=== PATIENT | female | born 2000 | race Two or more races ===

== ENCOUNTER 2024-10-06 03:29 | Emergency (ER) | payer MEDICAID, SELFPAY ==
[2024-10-06 03:30] VITALS: BMI 44.6
[2024-10-06 03:36] VITALS: BP 140/88; PULSE 86; RESP 19; TEMP 37.1; O2SAT 100
[2024-10-06] MEDS: predniSONE 20 MG TABLET 40 MG PO (05:04)
[2024-10-06] MEDS: DEXAMETHASONE SOD PHOS INJ 10 MG/ML VIAL PO (05:05)
--- NOTE | 2024-10-06 05:48 | PD.ASTHM ---
ED Asthma RME/HPI General Chief Complaint: Shortness of Breath/Dyspnea Stated Complaint: DIFFICULTY BREATHING HX ASTHMA Time Seen by Provider: 10/06/24 04:23 Arrival date/time: 10/06/24 03:29 24F with history of asthma presents to ED with 1 day of cough and SOB. Limitations: no limitations Related Data Previous Rx's ?Medication ?Instructions ?Recorded ibuprofen 600 mg tablet 600 mg PO QID PRN fever or pain 01/02/21 #30 tabs amoxicillin 875 mg-potassium 1 tab PO BID #20 tabs 04/14/21 clavulanate 125 mg tablet (Augmentin) ondansetron HCl 4 mg tablet 4 mg PO Q8H PRN nausea and 04/15/21 (Zofran) vomiting #20 tabs ibuprofen 800 mg tablet 800 mg PO TID PRN pain #30 tabs 09/21/23 prednisone 50 mg tablet 50 mg PO QDAY 4 days #4 tabs 10/06/24 Allergies Allergy/AdvReac Type Severity Reaction Status Date / Time No Known Allergies Allergy Verified 10/06/24 03:32 Review of Systems Review of Systems Systems Reviewed: All systems reviewed, normal except as documented Constitutional Constitutional: Reports system reviewed and no additional complaints, except as documented, Denies fever(s) and Denies headache(s) ENT Ears, Nose, Mouth, and Throat: Denies disequilibrium and Denies headache(s) Cardiovascular Cardiovascular: Reports system reviewed and no additional complaints, except as documented, Denies chest pain and Reports dyspnea Respiratory Respiratory: Reports system reviewed and no additional complaints, except as documented, Reports as per HPI, Reports cough and Reports dyspnea Gastrointestinal Gastrointestinal: Reports system reviewed and no additional complaints, except as documented, Denies abdominal pain, Denies nausea and Denies vomiting Neurologic Neurologic: Reports system reviewed and no additional complaints, except as documented, Denies confusion, Denies disequilibrium and Denies headache(s) Psychiatric Psychiatric: Denies confusion Past Medical History Social History SMOKING STATUS: Never smoker ED Exam General Limitations: Present no limitations General appearance: Present alert and in no apparent distress Head Head exam: Present atraumatic Eye Eye exam: Present normal appearance, PERRL and EOMI ENT ENT exam: Present normal exam, normal oropharynx and mucous membranes moist Neck Neck exam: Present normal inspection, full ROM and trachea midline Chest Chest inspection: Present normal inspection and symmetric chest wall rise Respiratory Respiratory exam: Present normal lung sounds bilaterally and prolonged expiratory phase (mild) Cardiovascular Cardiovascular exam: Present regular rate, normal rhythm and normal heart sounds Abdominal Exam Abdominal exam: Present soft and normal bowel sounds Extremities Exam Extremities exam: Present normal inspection and full ROM Back Exam Back exam: Present normal inspection and full ROM Neurological Exam Neurological exam: Present alert, oriented X3 and CN II-XII intact Psychiatric Psychiatric exam: Present normal affect and normal mood Skin Skin exam: Present warm, dry, intact and normal color Course Quality Measures none Orders Category Date Time Status Dexamethasone Inj [Decadron Inj] Med 10/06/24 04:23 Discontinued 10 mg PO X1 ONE predniSONE Med 10/06/24 04:23 Discontinued 40 mg PO X1 ONE Vital Signs Vital signs: Vital Signs Temperature 98.8 F 10/06/24 03:36 Pulse Rate 86 10/06/24 03:36 Respiratory Rate 19 10/06/24 03:36 Blood Pressure 140/88 H 10/06/24 03:36 Pulse Oximetry (%) 100 10/06/24 03:36 Oxygen Delivery Method Room Air 10/06/24 03:36 Asthma MDM Narrative MDM Narrative:: 24F with history of asthma presents to ED with 1 day of cough and SOB. Physical exam reveals clear lungs. Prolonged expiration. Patient is afebrile, calm, and alert. Steroids improved symptoms. Likely mild exacerbation. Patient data External records reviewed:: [facility] Clinical information provided by:: patient Social determinants that could affect healthcare access:: none Patient has the following chronic illnesses:: asthma How is presenting disease/condition affected by chronic disease/condition?: exacerbated by Evaluation data The following diagnostics were reviewed and interpreted by me:: other (specify) (none) Lab and/or radiology exams considered but not ordered:: not ordered Interpretation Summary: n/a Medications / Prescriptions Medications or Prescriptions considered but not ordered:: ordered Medication administrations:: Medication Administration History Discontinued Medications Dexamethasone Sodium Phosphate (Dexamethasone Sod Phos Inj 10 Mg/Ml Vial) 10 mg PO X1 ONE Stop: 10/06/24 04:24 Last Admin: 10/06/24 05:05 Dose: 10 mg Documented By: EE Prednisone (Prednisone 20 Mg Tablet) 40 mg PO X1 ONE Stop: 10/06/24 04:24 Last Admin: 10/06/24 05:04 Dose: 40 mg Documented By: JEANNETTE Consultations Consultation(s) initiated? (list below): No Diagnosis Differential diagnosis asthma: Acute exacerbation, Status asthmaticus, Acute asthmatic bronchitis, PE, Pneumonia, COPD exacerbation, Pulmonary edema systolic, Pulmonary edema dystolic, ARDS, Pneumothorax and Foreign body in trachea Most likely diagnosis given after review of the tests above:: mild asthma exacerbation Admission Indicated Admission indicated?: not indicated Admission Request Was there a request for admission?: No Disposition Plan Disposition Plan: Discharge Discharge Attestation Discharge Attestation: The patient and all family members were given an opportunity to ask questions and understood the discharge instructions. Discharge instructions specifically effects, indications for sooner follow up or return to the emergency department, and the expected course of current diagnosis. Patient condition: Stable Discharge Plan Plan Patient Disposition: HOME (Self Care) Disposition Comment: Stable Prescriptions/Referrals Prescriptions/Med Rec: New prednisone 50 mg tablet 50 mg PO QDAY 4 Days Qty: 4 0RF No Action amoxicillin-pot clavulanate [Augmentin] 875-125 mg tablet 1 tab PO BID Qty: 20 0RF ibuprofen 600 mg tablet 600 mg PO QID PRN (Reason: fever or pain) Qty: 30 0RF ondansetron HCl [Zofran] 4 mg tablet 4 mg PO Q8H PRN (Reason: nausea and vomiting) Qty: 20 0RF ibuprofen 800 mg tablet 800 mg PO TID PRN (Reason: pain) Qty: 30 0RF Referrals: Samuel Coronel MD [Primary Care Provider] - In 1 week Problem List Clinical Impression: Mild asthma exacerbation Patient/Caregiver Discharge Instructions Additional Instructions: Please follow-up with PCP within 24-48 hours and return immediately if symptoms worsen. Print Language: [place] Stand Alone Forms: Patient Portal Info Letter JUAN CARLOS/SERGIO Supervising Physician PATY Supervising Physician: Dr. Grace
== END 2024-10-06 06:13 | disposition home or self-care (01) ==
PROVIDERS: Emergency Provider Emergency Medicine; PCP Family Medicine
DX: J45.901 Unspecified asthma with (acute) exacerbation (principal)
CPT/HCPCS: 99282; J1100; J7512

== ENCOUNTER 2024-12-06 03:06 | Emergency (ER) | payer MEDICAID, SELFPAY ==
[2024-12-06 03:07] VITALS: BMI 39.7
--- NOTE | 2024-12-06 03:57 | XR_ITS ---
Examination: Abdomen sonogram, Limited Date and time of exam: December 06, 2024 0508 hours INDICATIONS: Right upper abdominal pain radiating to back with nausea beginning one month ago Technique: Real-time bashir scale transabdominal sonographic images of the upper abdomen obtained. Findings: Negative for gallstones Common bile duct 0.3 cm Pancreatic head 2.9 cm Liver 17.1 cm lobular contour fatty infiltration Normal hepatopedal portal venous flow Patent IVC IMPRESSION: Negative for cholelithiasis Mild hepatomegaly fatty infiltration suspect primary hepatocellular disease
[2024-12-06 04:01] VITALS: BP 143/105; PULSE 89; RESP 18; TEMP 36.8; O2SAT 98
--- NOTE | 2024-12-06 04:01 | PD.EDABDPN ---
ED Abdominal Pain RME/HPI General Chief Complaint: Abdominal Pain Stated complaint: R UPPER ABD PAIN WITH HX OD GALLSTONES Time seen by provider: 12/06/24 03:52 Arrival date/time: 12/06/24 03:06 RME / HPI RME / HPI narrative: This section includes all my notes and documentations, including HPI, PE, and ED course. Andry Grace MD HPI: 24yo female with a history of gallstones (several years ago) presents to the ED for a chief complaint of right sided upper abdominal pain. No radiation or migration. Feels similar to her gallstones. She states her pain worsened tonight around 2200, about 5 hours ago. Patient reports associated nausea. Patient denies any vomiting, fever, chills or any other associated symptoms. No PSH. Denies being . No other complaints reported. ROS: All negative except as documented in HPI. Physical Exam: General: Alert and oriented. No acute distress when remaining still. Eyes: Conjunctivae and lids clear. ENT: No nasal congestion. Neck: Supple. Heart: RRR. Lungs: No respiratory distress. Good air movement. No rhonchi, wheezing, rales. Abdomen: Soft with epigastric and RUQ tenderness. Normal bowel sounds. No distension. No rebound or guarding. Back: No CVA tenderness. Skin: Warm and dry. Neuro: Alert and oriented X 3. I reviewed all diagnostic test results. My review of the US gallbladder report is no acute findings. Blood tests and urine tests unremarkable. At this point, diagnoses include gastritis. Treatment here included Tylenol with Codeine and Zofran. Significant improvement noted. Prescribed famotidine and omeprazole and recommended more outpatient workup. Based on my best medical judgment, made decision no further evaluation or treatment indicated at this time. Patient understands and agrees to the discharge instructions customized and printed, see below. Discharge instructions from Dr. Grace: ?After evaluation, your symptoms are due to stomach ulcer (see attached handout).? ?To help heal the ulcer, take Omeprazole 40 mg every morning and Famotidine 40 mg at bedtime for a week then as needed. ?Zofran for nausea/vomiting.? Clear liquid diet for 24 hours.? Then slowly advance diet as tolerated. ?Avoid food and beverages that can trigger and worsen ulcers.? See attached handout. ?See a private doctor on 12/09/2024. Ask to review all test results and official radiology reports, to make sure you receive all necessary follow-ups and monitoring. To make sure there is no serious intra-abdominal condition, ask for help with more investigation not available here in the ER.? Such as EGD or scoping the stomach, colonoscopy or scoping the colon, and referral to see wholesaler. ?Seek immediate medical care with worsening or with any concerns. Andry Grace MD Related Data Previous Rx's ?Medication ?Instructions ?Recorded ibuprofen 600 mg tablet 600 mg PO QID PRN fever or pain 01/02/21 #30 tabs amoxicillin 875 mg-potassium 1 tab PO BID #20 tabs 04/14/21 clavulanate 125 mg tablet (Augmentin) ondansetron HCl 4 mg tablet 4 mg PO Q8H PRN nausea and 04/15/21 (Zofran) vomiting #20 tabs ibuprofen 800 mg tablet 800 mg PO TID PRN pain #30 tabs 09/21/23 famotidine 40 mg tablet 40 mg PO .bedtime #30 tabs 12/06/24 omeprazole 40 mg capsule,delayed 40 mg PO QDAY #30 caps 12/06/24 release ondansetron 4 mg disintegrating 4 mg PO TID PRN nausea and 12/06/24 tablet vomiting 30 days #10 tabs Allergies Allergy/AdvReac Type Severity Reaction Status Date / Time No Known Allergies Allergy Verified 12/06/24 03:11 Review of Systems Review of Systems Systems Reviewed: All systems reviewed, normal except as documented Past Medical History Social History SMOKING STATUS: Never smoker ED Exam Narrative Physical exam: As noted in HPI. Course Quality Measures none Orders Category Date Time Status US gall bladder Stat Exams 12/06/24 03:57 Completed Amylase Stat Lab 12/06/24 04:20 Completed Bilirubin,Direct Stat Lab 12/06/24 04:20 Completed CBC Stat Lab 12/06/24 04:20 Completed CMP [Comprehensive Metabolic Panel] Stat Lab 12/06/24 04:20 Completed HCG Qualitative,Urine Stat Lab 12/06/24 05:06 Completed HCG,Qualitative Serum Stat Lab 12/06/24 04:20 Completed Lipase Stat Lab 12/06/24 04:20 Completed Magnesium Stat Lab 12/06/24 04:20 Completed UA, C/S IF [Urinalysis, C/S if Indicated] Stat Lab 12/06/24 05:06 Completed ACETAMINOPHEN w/COD 300-30 [Tylenol w/Cod #3] Med 12/06/24 03:58 Discontinued 2 tab PO X1 ONE Ondansetron Odt [Zofran Odt] Med 12/06/24 03:58 Discontinued 4 mg PO X1 ONE Vital Signs Vital signs: Vital Signs Temperature 98.3 F 12/06/24 04:01 Pulse Rate 89 12/06/24 04:01 Respiratory Rate 18 12/06/24 04:01 Blood Pressure 143/105 H 12/06/24 04:01 Pulse Oximetry (%) 98 12/06/24 04:01 Oxygen Delivery Method Room Air 12/06/24 04:01 Abdominal Pain MDM MDM Narrative MDM Narrative:: 24yo female with a history of gallstones presents to the ED for a chief complaint of right flank pain. No radiation or migration. Patient states she's had intermittent pain for years , reporting it feels similar to her gallstones. She states her pain worsened tonight around 2200, so she came in for evaluation. Patient reports associated nausea. Patient denies any vomiting, fever, chills or any other associated symptoms. No PSH. Denies being . No other complaints reported. Patient data External records reviewed:: [facility] previous records (Per chart review, patient was seen here on 10/06/24 for mild asthma exacerbation.) Clinical information provided by:: patient Social determinants that could affect healthcare access:: none Patient has the following chronic illnesses:: none How is presenting disease/condition affected by chronic disease/condition?: no chronic disease Evaluation data The following diagnostics were reviewed and interpreted by me:: lab results and radiology exam(s) Lab and/or radiology exams considered but not ordered:: none Interpretation Summary: I reviewed all diagnostic test results. My review of the US gallbladder report is no acute findings. Blood tests and urine tests unremarkable. Medications / Prescriptions Medications or Prescriptions considered but not ordered:: none Medication administrations:: Medication Administration History Discontinued Medications Acetaminophen/Codeine Phosphate (Acetaminophen W/Cod 300-30 Tablet) 2 tab PO X1 ONE Stop: 12/06/24 03:59 Last Admin: 12/06/24 05:46 Dose: Not Given Documented By: NANCY Non-Admin Reason: Discontinued Ondansetron HCl (Ondansetron Odt 4 Mg Tabrap) 4 mg PO X1 ONE; Protocol Stop: 12/06/24 03:59 Last Admin: 12/06/24 05:46 Dose: Not Given Documented By: NANCY Non-Admin Reason: Discontinued Tylenol with Codeine, Zofran Consultations Consultation(s) initiated? (list below): No Diagnosis Differential diagnosis abdominal pain: acute appendicitis, calculus of kidney, constipation, diverticulitis, endometriosis, gastroenteritis, pancreatitis, small bowel obstruction and other (Biliary colic, PUD, gastritis, GERD) Most likely diagnosis given after review of the tests above:: Gastritis Admission Indicated Admission indicated?: not indicated Explain why admission is indicated or not indicated:: With significant improvement, there was no indication for admission. Admission Request Was there a request for admission?: No Disposition Plan Disposition Plan: Discharge Discharge Attestation Discharge Attestation: The patient and all family members were given an opportunity to ask questions and understood the discharge instructions. Discharge instructions specifically effects, indications for sooner follow up or return to the emergency department, and the expected course of current diagnosis. Patient condition: Stable Discharge Plan Plan Patient Disposition: HOME (Self Care) Prescriptions/Referrals Prescriptions/Med Rec: New famotidine 40 mg tablet 40 mg PO .bedtime Qty: 30 0RF omeprazole 40 mg capsule,delayed release(DR/EC) 40 mg PO QDAY Qty: 30 0RF ondansetron 4 mg tablet,disintegrating 4 mg PO TID PRN (Reason: nausea and vomiting) 30 Days Qty: 10 0RF No Action amoxicillin-pot clavulanate [Augmentin] 875-125 mg tablet 1 tab PO BID Qty: 20 0RF ibuprofen 600 mg tablet 600 mg PO QID PRN (Reason: fever or pain) Qty: 30 0RF ondansetron HCl [Zofran] 4 mg tablet 4 mg PO Q8H PRN (Reason: nausea and vomiting) Qty: 20 0RF ibuprofen 800 mg tablet 800 mg PO TID PRN (Reason: pain) Qty: 30 0RF Referrals: Samuel Coronel MD [Primary Care Provider] - In 1 week Problem List Clinical Impression: Stomach ulcer Patient/Caregiver Discharge Instructions Discharge Activity: activity as tolerated Education Materials: ED PEPTIC ULCER vs GASTRITIS Additional Instructions: Discharge instructions from Dr. Grace: ?After evaluation, your symptoms are due to stomach ulcer (see attached handout).? ?To help heal the ulcer, take Omeprazole 40 mg every morning and Famotidine 40 mg at bedtime for a week then as needed. ?Zofran for nausea/vomiting.? Clear liquid diet for 24 hours.? Then slowly advance diet as tolerated. ?Avoid food and beverages that can trigger and worsen ulcers.? See attached handout. ?See a private doctor on 12/09/2024. Ask to review all test results and official radiology reports, to make sure you receive all necessary follow-ups and monitoring. To make sure there is no serious intra-abdominal condition, ask for help with more investigation not available here in the ER.? Such as EGD or scoping the stomach, colonoscopy or scoping the colon, and referral to see wholesaler. ?Seek immediate medical care with worsening or with any concerns. Print Language: [place] Stand Alone Forms: Carol Award Info., Patient Portal Info Letter
[2024-12-06 04:34] LABS: Basophils % (Auto) 0 % (0-2.5); Eosinophils # (Auto) 0.1 Thou/mm3 (0.0-0.5); Eosinophils % (Auto) 1 % (0-10); Hematocrit 40.3 % (36.0-46.0); Hemoglobin 13.3 g/dL (12.0-16.0); Immature Granulocytes % (Auto) 0 % (0-0); Immature Granulocytes Auto 0.03 Thou/mm3 (0.00-0.00); Lymphocytes # (Auto) 3.6 Thou/mm3 (1.0-4.8); Lymphocytes % (Auto) 35 % (10-50); Mean Corpuscular Hemoglobin 25.4 pg (25.0-35.0); Mean Corpuscular Volume 77 fL (80-100); Monocytes # (Auto) 0.6 Thou/mm3 (0.0-0.8); Monocytes % (Auto) 6 % (0-12); Neutrophils % (Auto) 58 % (37-80); Nucleated Red Blood Cell % 0 /100 WBC (0); Platelet Count 279 Thou/mm3 (140-440); RDW Standard Deviation 38.7 fL (36.4-46.3); Red Blood Count 5.23 Miln/mm3 (4.00-5.20); White Blood Count 10.2 Thou/mm3 (3.6-11.0)
[2024-12-06 04:55] LABS: Alanine Aminotransferase 35 U/L (10-49); Albumin, Serum 4.5 gm/dL (3.5-5.0); Albumin/Globulin Ratio 1.7 (1.2-2.2); Alkaline Phosphatase 101 U/L (46-116); Amylase 76 U/L (30-118); Anion Gap 10 (7-16); Aspartate Amino Transferase 22 U/L (0-34); BUN/Creatinine Ratio 14 Ratio (12-20); Bilirubin,Direct < 0.1 mg/dL (0.0-0.3); Bilirubin,Total 0.2 mg/dL (0.3-1.2); Blood Urea Nitrogen 10 mg/dL (9-23); Calcium 8.9 mg/dL (8.3-10.6); Calcium (Corrected) 8.9 mg/dL (8.5-10.1); Carbon Dioxide 27.8 mMol/L (20.0-31.0); Chloride 106 mMol/L (98-107); Creatinine (Component) 0.7 mg/dL (0.6-1.3); Estimated Creatinine Clearance 154.4 mL/min (>60); Globulin 2.7 gm/dL (2.3-3.5); Glucose 97 mg/dL (74-106); Lipase 40 U/L (12-53); Magnesium 1.8 mg/dL (1.6-2.6); Osmolality,Calculated 285 (275-295); Potassium 3.9 mMol/L (3.4-5.1); Sodium 144 mMol/L (136-145); Total Protein 7.2 gm/dL (5.7-8.2); eGFR > 60 See Note
[2024-12-06 05:12] LABS: HCG,Qualitative Serum Negative
[2024-12-06 05:36] LABS: Collection Type, Urine Clean Catch
[2024-12-06 05:42] LABS: Bilirubin,Urine Negative (Negative); Blood,Urine Negative (Negative); Clarity,Urine Clear (Clear/Hazy); Color,Urine Lt-Yellow (Lt Yel-Yel); Culture Indicated,Urine Not Indicated; Glucose, Urine Negative (Negative); Ketones,Urine Negative (Negative); Leukocyte Esterase,Urine Negative (Negative); Nitrite,Urine Negative (Negative); Protein,Urine Negative (Neg - Trace); RBC,Urine 1 /hpf (0-3); Specific Gravity,Urine 1.022 (1.001-1.035); Squamous Epithelial Cell,Urine 1 /hpf (0-5); Urobilinogen,Urine Negative mg/dL (0.0-1.0); WBC,Urine 4 /hpf (0-5)
[2024-12-06 05:52] LABS: HCG Qualitative,Urine Negative
== END 2024-12-06 05:48 | disposition home or self-care (01) ==
PROVIDERS: Emergency Provider Emergency Medicine; PCP Family Medicine
DX: K25.9 Gastric ulcer, unspecified as acute or chronic, without hemorrhage or perforation (principal); R10.11 Right upper quadrant pain
CPT/HCPCS: 36415; 76705; 80053; 81001; 81025; 82150; 82248; 83690; 83735; 84703; 85025; 99284

== ENCOUNTER 2025-04-19 06:25 | Emergency (ER) | payer MEDICAID, SELFPAY ==
[2025-04-19 06:26] VITALS: BMI 44.6
[2025-04-19 06:29] VITALS: BP 133/85; PULSE 83; RESP 18; TEMP 36.6; O2SAT 100
[2025-04-19 07:49] LABS: Collection Type, Urine Voided; RBC,Urine 0 /hpf (0-3)
[2025-04-19 08:02] LABS: Amorphous Crystals,Urine Present (Absent); Bilirubin,Urine Negative (Negative); Blood,Urine Negative (Negative); Budding Yeast,Urine Present; Calcium Oxalate Crystals,Urine 2+; Color,Urine Yellow (Lt Yel-Yel); Culture Indicated,Urine Not Indicated; Glucose, Urine Negative (Negative); Ketones,Urine Negative (Negative); Leukocyte Esterase,Urine Positive (Negative); Nitrite,Urine Negative (Negative); PH,Urine 6.0 (5.0-7.0); Protein,Urine Trace (Neg - Trace); Specific Gravity,Urine 1.039 (1.001-1.035); Squamous Epithelial Cell,Urine 4 /hpf (0-5); Urobilinogen,Urine 2.0 mg/dL (0.0-1.0); WBC,Urine 2 /hpf (0-5)
[2025-04-19 08:05] LABS: HCG Qualitative,Urine Negative
[2025-04-19 08:06] LABS: Clarity,Urine Hazy (Clear/Hazy)
--- NOTE | 2025-04-19 08:31 | EDNOTE_ITS ---
<Statement entered by Sally Romano MD - 05/04/25 14:16> As co-signing physician, I was present and available for consult prn. I concur with the plan and care as documented by the midlevel provider. ED Back Injury Pain RME/HPI General Chief Complaint: Back Pain/Injury Stated Complaint: BACK PAIN X3 DAYS Time Seen by Provider: 04/19/25 06:50 Arrival date/time: 04/19/25 06:25 This is a 24-year-old female that comes into the emergency room with lower back pain. Patient states pain starts in the right buttock area and radiates down her leg. Patient states she has tingling to her leg. Patient denies any loss of bowel or bladder control. Patient states that she fell forward a couple days ago she thinks she tripped over something. Patient did not fall on her back however. Patient states she fell forward. Patient denies any urinary symptoms. Patient denies any past medical history. Related Data Previous Rx's ?Medication ?Instructions ?Recorded ibuprofen 600 mg tablet 600 mg PO QID PRN fever or p ain 01/02/21 #30 tabs amoxicillin 875 mg-potassium 1 tab PO BID #20 tabs clavulanate 125 mg tablet (Augmentin) ondansetron HCl 4 mg tablet 4 mg PO Q8H PRN nausea and 04/15/21 (Zofran) vomiting #20 tabs ibuprofen 800 mg tablet 800 mg PO TID PRN pain #30 t abs 09/21/23 famotidine 40 mg tablet 40 mg PO .bedtime #30 tabs 0 12/06/24 omeprazole 40 mg capsule,delayed 40 mg PO QDAY #30 cap s 12/06/24 release cyclobenzaprine 10 mg tablet 10 mg PO HS PRN muscle sp asm #14 04/19/25 tabs ibuprofen 800 mg tablet 800 mg PO Q6H PRN pain #14 t abs 04/19/25 Allergies Allergy/AdvReac Type Severity Reaction Status Date / Time No Known Allergies Allergy Verified 04/19/25 06:26 Review of Systems Review of Systems Systems Reviewed: All systems reviewed, normal except as documented Past Medical History Social History SMOKING STATUS: Never smoker ED Exam Narrative Physical exam: VITAL SIGNS: Reviewed. GENERAL APPEARANCE: Alert and interactive, follows commands, no acute distress HEAD AND FACE: Non-traumatic. ENT: PERRL, conjuctiva pink and clear, eyelid no trauma, Mucous membrane moist. NECK: Supple, nontender, no nuchal rigidity. CHEST: No tenderness, no crepitus, no paradoxical movement, no retractions. LUNGS: breathing even and unlabored HEART: Regular rate, cap refill less than 2 seconds ABDOMEN: Soft, nondistended, no guarding, nontender, no rebound, no masses, NEUROLOGICAL: Gross motor function intact sensory function intact, Appropriate for age. MUSCULOSKELETAL: low back nontender, full range of motion. no midline tenderness, no meningismus, no step offs, straight leg test done. Pain was exacerbated when patient lifted leg approximately 35 degrees. EXTREMITIES: No redness no swelling no skin breakdown on bilateral foot and leg. Distal neurovascular status intact bilateral foot SKIN: Color pink, dry, no rash, no lacerations, no abrasions, no contusions. Course Quality Measures none Orders Category Date Time Status HCG Qualitative,Urine Stat Lab 04/19/25 07:29 Completed Urinalysis, C/S if Indicated Stat Lab 04/19/25 07:29 Completed Acetaminophen Tab [Tylenol ES Tab] Med 04/19/25 08:24 Discontinued 1,000 mg PO X1 ONE CYCLObenzaPRINE [Flexeril] Med 04/19/25 08:24 Discontinued 10 mg PO X1 ONE Ketorolac Inj [Toradol Inj] Med 04/19/25 08:24 Discontinued 60 mg IM X1 ONE Metoclopramide [Reglan] Med 04/19/25 08:24 Discontinued 10 mg PO X1 ONE Vital Signs Vital signs: Vital Signs Temperature 97.9 F 04/19/25 06:29 Pulse Rate 83 04/19/25 06:29 Respiratory Rate 18 04/19/25 06:29 Blood Pressure 133/85 H 04/19/25 06:29 Pulse Oximetry (%) 100 04/19/25 06:29 Oxygen Delivery Method Room Air 04/19/25 06:29 Back Pain / Injury MDM Narrative MDM Narrative:: I spoke to patient at length. Urine looks unremarkable. Patient does not seem to have any other injuries. Patient was having some upper back pain but is more generalized. Patient does have pain to palpation to her right buttock area that radiates down her leg. Will treat for sciatica type pain patient told to follow-up with primary provider in 1 to 2 days. Back to emergency room symptoms change or worsen. Dragon dictation: Although this document has been carefully reviewed, there may still be some phonetic and other typographical errors. These errors are purely grammatical due to imperfections in the software program and should not be construed in any way to compromise the substance of the patient's medical care during this visit Patient data External records reviewed:: [facility] previous records Clinical information provided by:: patient Social determinants that could affect healthcare access:: none Patient has the following chronic illnesses:: None How is presenting disease/condition affected by chronic disease/condition?: no chronic disease Evaluation data The following diagnostics were reviewed and interpreted by me:: lab results Lab and/or radiology exams considered but not ordered:: None Interpretation Summary: See note Medications / Prescriptions Medications or Prescriptions considered but not ordered:: None Medication administrations:: Medication Administration History Discontinued Medications Acetaminophen (Acetaminophen 500 Mg Tablet) 1,000 mg PO X1 ONE Stop: 04/19/25 08:25 Last Admin: 04/19/25 08:43 Dose: 1,000 mg Documented By: [facility] Cyclobenzaprine HCl (Cyclobenzaprine 5 Mg Tablet) 10 mg PO X1 ONE Stop: 04/19/25 08:25 Last Admin: 04/19/25 08:45 Dose: Not Given Documented By: [facility] Non-Admin Reason: Cancelled by Provider Ketorolac Tromethamine (Ketorolac Inj 60 Mg/2 Ml Vial) 60 mg IM X1 ONE Stop: 04/19/25 08:25 Last Admin: 04/19/25 08:45 Dose: 60 mg Documented By: [facility] Metoclopramide HCl (Metoclopramide 5 Mg Tablet) 10 mg PO X1 ONE Stop: 04/19/25 08:25 Last Admin: 04/19/25 08:42 Dose: 10 mg Documented By: [facility] See [facility] Consultations Consultation(s) initiated? (list below): No Diagnosis Most likely diagnosis given after review of the tests above:: Back pain Admission Indicated Admission indicated?: not indicated Admission Request Was there a request for admission?: No Disposition Plan Disposition Plan: Discharge Discharge Attestation Discharge Attestation: The patient and all family members were given an opportunity to ask questions and understood the discharge instructions. Discharge instructions specifically effects, indications for sooner follow up or return to the emergency department, and the expected course of current diagnosis. Patient condition: Stable Discharge Plan Plan Patient Disposition: HOME (Self Care) Patient condition on transfer: Stable Prescriptions/Referrals Prescriptions/Med Rec: New ibuprofen 800 mg tablet 800 mg PO Q6H PRN (Reason: pain) Qty: 14 0RF cyclobenzaprine 10 mg tablet 10 mg PO HS PRN (Reason: muscle spasm) Qty: 14 0RF No Action amoxicillin-pot clavulanate [Augmentin] 875-125 mg tablet 1 tab PO BID Qty: 20 0RF ibuprofen 600 mg tablet 600 mg PO QID PRN (Reason: fever or pain) Qty: 30 0RF ondansetron HCl [Zofran] 4 mg tablet 4 mg PO Q8H PRN (Reason: nausea and vomiting) Qty: 20 0RF ibuprofen 800 mg tablet 800 mg PO TID PRN (Reason: pain) Qty: 30 0RF famotidine 40 mg tablet 40 mg PO .bedtime Qty: 30 0RF omeprazole 40 mg capsule,delayed release(DR/EC) 40 mg PO QDAY Qty: 30 0RF Referrals: Samuel Coronel MD [Primary Care Provider, Family Practice] - In 1 week Problem List Clinical Impression: Back pain Patient/Caregiver Discharge Instructions Discharge Activity: activity as tolerated Education Materials: ED Back Pain (Acute or Chronic) Additional Instructions: Follow up with primary provider in 1-2 days. Come back to ED if symptoms change or worsen Print Language: Stateless Stand Alone Forms: Carol Award Info., Patient Portal Info Letter PA/SERGIO Supervising Physician PA/SERGIO Supervising Physician: janessa
[2025-04-19] MEDS: METOCLOPRAMIDE 5 MG TABLET 10 MG PO (08:42)
[2025-04-19] MEDS: ACETAMINOPHEN 500 MG TABLET 1000 MG PO (08:43)
[2025-04-19] MEDS: KETOROLAC INJ 60 MG/2 ML VIAL IM (08:45)
--- NOTE | 2025-04-19 08:51 | PC.NURSE ---
pt not given flexeril since she is driving home
== END 2025-04-19 08:54 | disposition home or self-care (01) ==
PROVIDERS: Nurse Practitioner Family; Emergency Provider Nurse Practitioner Primary Care; PCP Family Medicine
DX: T14.90XA Injury, unspecified, initial encounter (principal); W19.XXXA Unspecified fall, initial encounter
CPT/HCPCS: 81001; 81025; 96372; 99283; J1885; A9270